=== PATIENT | male | born 1965 | race Caucasian/White ===

== ENCOUNTER 2022-03-27 14:54 | Emergency (ER) | payer BC ==
[2022-03-27] MEDS ORDERED: Diphtheria,Pertussis(Acell),Tetanus Vaccine 0.5 ML Syringe IM ONE (15:20)
[2022-03-27] MEDS ORDERED: Lidocaine 1% 10 ML MDV INJECT ONE (15:20)
== END 2022-03-27 16:25 | disposition home or self-care (01) ==
LOC: JD.ED 14:54
DX: S81.811A Laceration without foreign body, right lower leg, initial encounter (principal); Z23 Encounter for immunization; W26.0XXA Contact with knife, initial encounter; Y99.0 Civilian activity done for income or pay; Y92.009 Unspecified place in unspecified non-institutional (private) residence as the place of occurrence of the external cause
CPT/HCPCS: 12001; 90471; 90715; 99282-25